=== PATIENT | male | born 1990 | race Two or more races ===

== ENCOUNTER 2024-12-06 07:21 | Emergency (ER) | payer OTHER ==
[~2024-12-06] VITALS: Ht 177.8 cm; Wt 81.6 kg
[2024-12-06] MEDS ORDERED: AMOX-430 PO (07:57)
[2024-12-06] MEDS ORDERED: IBUPROFEN 600 MG TABLET ONE (08:05)
[2024-12-06] MEDS: IBUPROFEN 600 MG TABLET PO ONE (08:08)
[2024-12-06 08:19] VITALS: BP 125/70; TEMP 102.3; O2SAT 100
== END 2024-12-06 08:37 | disposition home or self-care (01) ==
LOC: ER 07:23
DX: H66.91 Otitis media, unspecified, right ear (principal); B34.9 Viral infection, unspecified; Z87.442 Personal history of urinary calculi